=== PATIENT | male | born 1955 | race Caucasian/White ===

== ENCOUNTER 2023-09-04 11:40 | Emergency (ER) | payer OTHER ==
[~2023-09-04] VITALS: Ht 182.9 cm; Wt 102.4 kg
[~2023-09-04 11:40] MED LIST: AMLO1TAB23; IBUP-1456
[2023-09-04 12:52] VITALS: BP 123/83; PULSE 74; RESP 15; TEMP 98.5; O2SAT 98
[2023-09-04] MEDS ORDERED: LIDOCAINE W/ EPINEPHRINE 2% INJ 20ML VIAL ID ONE (13:15)
[2023-09-04] MEDS ORDERED: NEOMYCIN-BACITRACIN-POLYM UNITDOSE PKG TOP OINT TOP ONE (13:15)
[2023-09-04] MEDS ORDERED: TETANUS-DIPTH-ACEL PERTUSSIS 0.5ML SYR Tdap IM ONE (14:15)
== END 2023-09-04 14:19 | disposition home or self-care (01) ==
LOC: ER 11:40
DX: S81.811A Laceration without foreign body, right lower leg, initial encounter (principal); I10 Essential (primary) hypertension; Z79.1 Long term (current) use of non-steroidal anti-inflammatories (NSAID); Z79.899 Other long term (current) drug therapy; W26.8XXA Contact with other sharp object(s), not elsewhere classified, initial encounter; Y93.89 Activity, other specified; Y92.89 Other specified places as the place of occurrence of the external cause; Y99.8 Other external cause status
CPT/HCPCS: 12004; 90471; 90715

== ENCOUNTER 2024-09-14 22:01 | Emergency (ER) | payer OTHER ==
[~2024-09-14] VITALS: Ht 182.9 cm; Wt 100.0 kg
--- NOTE | 2024-09-14 22:36 | ED.PDOC ---
History of Present Illness HPI Comments 68 y/o M, with a Hx of HTN and current inguinal hernia, is BIBA for c/o non- radiating, suprapubic abdominal pain, today. 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 He comments on pain being stabbing and burning in quality and being informed on having an inguinal hernia following an outpatient ultrasound, recently, and is awaiting to consult with a specialist regarding it. He denies having any nausea, vomiting, diarrhea, fever, chills, urinary symptoms, or other associated symptoms or modifiers at this time. Chief Complaint: Abdominal Pain Time Seen by MD: 22:15 Primary Care Provider: KAREN Reviewed Notes: Nurses Notes, Tag Machine Operator Notes, Medications, Allergies Allergies: Coded Allergies: NO KNOWN ALLERGIES (Unverified , 11/07/13) Home Meds Reported Medications Ibuprofen (Ibuprofen) 800 Mg Tab, #30 12/03/13 Amlodipine Besylate (Amlodipine Besylate) 10 Mg Tab, #90 12/03/13 Information Source: Patient, Emergency Med Personnel Mode of Arrival: EMS Severity: Moderate Timing: Hours Duration: Since onset Prehospital treatment: 12 Lead EKG, [employer] Past Medical History PAST MEDICAL HISTORY: HTN Past Medical History (Other): current inguina hernia Surgical History: Denies all surgeries Family History Family History: Reviewed,noncontributory to illness, Unknown Social History Smoker: Non-Smoker Alcohol: Denies ETOH Use Drugs: Denies Drug Use Lives In: Home Constitutional: denies: chills, diaphoresis, fatigue, fever, malaise, sweats, weakness, others EENTM: denies: blurred vision, double vision, ear bleeding, ear discharge, ear drainage, ear pain, ear ringing, eye pain, eye redness, hearing loss, mouth pain, mouth swelling, nasal discharge, nose bleeding, nose congestion, nose pain, photophobia, tearing, throat pain, throat swelling, voice changes, others Respiratory: denies: cough, hemoptysis, orthopnea, SOB at rest, shortness of breath, SOB with excertion, stridor, wheezing, others Cardiovascular: denies: chest pain, dizzy spells, diaphoresis, Dyspnea on ex ertion, edema, irregular heart beat, left arm pain, lightheadedness, palpitations, PND, syncope, others Gastrointestinal: reports: abdominal pain (suprapubic and right inguinal region ); denies: abdomen distended, blood streaked bowels, constipated, diarrhea, dysphagia, difficulty swallowing, hematemesis, melena, nausea, poor appetite, poor fluid intake, rectal bleeding, rectal pain, vomiting, others Genitourinary: denies: burning, dysuria, flank pain, frequency, hematuria, incontinence, penile discharge, penile sore, pain, testicle pain, testicle swelling, urgency, others Neurological: denies: dizziness, fainting, headache, left sided numbness, left sided weakness, numbness, paresthesia, pre-existing deficit, right sided numbness, right sided weakness, seizure, speech problems, tingling, tremors, weakness, others Musculoskeletal: denies: back pain, gout, joint pain, joint swelling, muscle pain, muscle stiffness, neck pain, others Integumetry: denies: bruises, change in color, change in hair/nails, dryness, laceration, lesions, lumps, rash, wounds, others Allergic/Immunocompromised: denies: Difficulty Healing, Frequent Infections, Hives, Itching, others Hematologic/Lymphatic: denies: anemia, blood clots, easy bleeding, easy bruising, swollen glands, others Endocrine: denies: excessive hunger, excessive sweating, excessive thirst, excessive urination, flushing, intolerance to cold, intolerance to heat, unexplained weight gain, unexplained weight loss, others Psychiatric: denies: anxiety, bipolar disorder, depression, hopeless, panic disorder, schizophrenia, sleepless, suicidal, others All Other Systems: Reviewed and Negative (negative unless otherwise stated above or in HPI) Physical Exam General Appearance: Moderate Distress (Did right-sided inguinal and suprapubic pain.), Normal HEENT: Normal ENT Inspection, Pharynx Normal, TMs Normal Neck: Full Range of Motion, Non-Tender, Normal, Normal Inspection Respiratory: Chest Non-Tender, Lungs Clear, No Accessory Muscle Use, No Respiratory Distress, Normal Breath Sounds Cardiovascular: No Edema, No JVD, No Murmur, No Gallop, Normal Peripheral Pulses, Regular Rate/Rhythm Breast Exam: Deferred Gastrointestinal: No Organomegaly, Non Tender, No Pulsatile Mass, Normal Bowel Sounds, Soft Genitalia: Other (Right-sided inguinal pain extending towards the scrotum. Unable to definitively appreciate an inguinal hernia. Nothing to reduced. No edema or ecchymosis.) Pelvic: Deferred Rectal: Deferred Extremities: No calf tenderness, Normal capillary refill, Normal inspection, Normal range of motion, Non-tender, No pedal edema Musculoskeletal : Apperance: Normal Neurologic: Alert, No Motor Deficits, Normal Affect, Normal Mood, No Sensory Deficits Cerebellar Function: Normal Reflexes: Normal Skin: Dry, Normal Color, Warm Lymphatic: No Adenopathy Was a procedure done? Was a procedure done?: No Differential Dx Considerations may include: incarcerated inguinal hernia, strangulated inguinal hernia, musculoskeletal pain , hydrocele, epididymitis, varicocele X-Ray, Labs, Meds, VS Vital Signs Date Time Temp Pulse Resp B/P (MAP) Pulse Ox O2 Delivery O2 Flow Rate FiO2 09/14/24 22:40 Room Air* 0 21 09/14/24 22:40 98.1 72 20 136/88 (104) 96 98.1 09/14/24 22:20 62 09/14/24 22:08 97.0 130 26 121/88 (99) 99 Lab Test 09/14/24 23:20 Range/Units Urine Color Colorless Yellow Urine Clarity Clear Clear Urine pH 7.0 5.0-9.0 Urine Specific Reading 1.011 1.001-1.035 Urine Protein Negative Negative Urine Ketones Negative Negative Urine Blood Negative Negative /uL Urine Nitrite Negative Negative Urine Bilirubin Negative Negative Urine Urobilinogen Normal Negative mg/dL Urine Leukocyte Esterase Negative Negative /uL Urine RBC None seen 0 - 3 /hpf Urine Microscopic WBC < 1 0-3 /HPF Urine Squamous Epithelial Cells Few <5 /hpf Urine Bacteria None seen None Seen /hpf Urine Glucose Normal Normal mg/dL Current Medications Medications (Trade) Dose Ordered Sig/Luis Route Start Time Stop Time Status Last Admin Acetaminophen/ Hydrocodone Bitart ([place] 10/325MG Tab) 1 tab ONCE ONCE PO 09/14/24 22:15 09/14/24 22:17 DC 09/14/24 23:20 X-Ray, Labs, Meds, VS Comment All studies performed the ED were evaluated by me personally. Urinalysis is unremarkable for any urinary tract infection concerns. Ultrasound of inguinal hernia and testicles was unremarkable for any hernia, but was confirmation for a right-sided hydrocele he and possible varicocele a. Additional right-sided epididymitis was noted. Small left-sided hydrocele was noted with a large left epididymis indicative of epididymitis. Patient declined any sexual indiscretions and therefore, patient will be sent home on Levaquin to address any bacterial concerns as well as pain medication. Patient should follow up with the primary care provider once antibiotics are complete for re-evaluation. Time of 1ST Reevaluation: 00:38 Reevaluation 1ST: Improved Consultation: PCP Patient Education/Counseling: Diagnosis, Treatment Family Education/Counseling: Diagnosis, Treatment, No Family Present Departure 1 Departure Time of Disposition: 00:39 Impression: Primary Impression: Epididymitis, bilateral Additional Impressions: Hydrocele of testis Bilateral varicoceles Disposition: HOME / SELF CARE / HOMELESS Condition: Stable Additional Instructions: Advised patient utilize antibiotics as directed as well as pain medication as needed. Patient should follow up with the primary care provider in approximately seven days for re-evaluation. e-Prescriptions Hydrocodone-Acetaminophen (Hydrocodone Bitartrate/AC 10-325 mg) 1 Tab Tab 1 TAB PO Q8HP PRN, #15 TAB Prov: SHARON BEASLEY PAC 09/15/24 Ibuprofen Micronized (Ibuprofen) 800 Mg Tab 800 MG PO Q8HP PRN, #30 TAB Prov: SHARON BEASLEY PAC 09/15/24 Levofloxacin Hemihydrate (LEVAQUIN 500 MG) 500 Mg Tab 1 TAB PO DAILY for 9 Days, #9 TAB Prov: SHARON BEASLEY 09/15/24 Discharged With: Self, Friend Critical Care Note Critical Care Time?: No Stability Stability form required: No Heart Score Heart Score: Heart Score Response (Comments) Value History N/A 0 EKG N/A 0 Age N/A 0 Risk Factors N/A 0 Troponin N/A 0 Total 0 I personally scribed for SHARON BEASLEY PAC ([email or web address]) on 09/14/24 at 22:36. Electronically submitted by Jonny Hercules ([email or web address]). SHARON BEASLEY PAC Sep 14, 2024 22:36
[2024-09-14] MEDS: HYDROcodone-ACET 10/325MG TAB PO ONE (23:20)
[2024-09-14 23:34] LABS: Urine Bacteria None Seen /hpf (None Seen)
--- NOTE | 2024-09-14 23:41 | DVH ---
US TESTICULAR ULTRASOUND HISTORY: Right sided inguinal hernia COMPARISON: None Technique: Transverse and longitudinal grayscale and Doppler sonographic images were obtained of the scrotum/testicles. Findings/ IMPRESSION: The right testicle measures 3.2 x 2.7 x 2.5 cm with cystic lesions measuring up to 2.1 mm. There is a small right-sided hydrocele and associated varicocele possible cystic lesion in the right epididymis measuring up to 1.6 cm. There is also increased color Doppler flow with increased size measuring 9 m m. The left testicle measures 3.4 x 2.4 x 2.5 cm. Cystic lesions measuring up to 1 cm. Small left-sided hydrocele. Enlarged left epididymis with increased vascularity and cystic lesions measuring up to 3 m m. Overall findings are concerning for possible bilateral epididymitis. The cystic lesions can be follo wed as clinically indicated. Right-sided varicocele
[2024-09-14 23:56] LABS: Urine Blood Negative /uL (Negative); Urine Clarity Clear (Clear); Urine Color Colorless (Yellow); Urine Protein, UAD Negative (Negative); Urine Specific Gravity 1.011 (1.001-1.035); Urine Squamous Epithelial Cell FEW /hpf (<5); Urine Urobilinogen Normal (Negative); Urine WBC < 1 /HPF (0-3)
[2024-09-15] MEDS ORDERED: LEVO500T91 PO (00:41)
[2024-09-15] MEDS ORDERED: IBUP-1455 PO (00:41)
[2024-09-15] MEDS ORDERED: HYDR-4798 PO (00:41)
[2024-09-15] MEDS: levoFLOXacin 250 MG TAB PO ONE (00:55)
[2024-09-15 00:57] VITALS: BP 149/85; TEMP 97.8
[2024-09-15 00:58] VITALS: PULSE 71; RESP 19; O2SAT 97
--- NOTE | 2024-09-16 19:41 | ECG ---
[facility] Test Date: 2024-09-14 Test Time: 22:20:57 Pat Name: SHARON LAMBERT Department: er Room: Gender: M Intervention Manager: : [id number] Requested By: SHARON BEASLEY Order Number: [id number] Reading MD: Danny Dumont Measurements Intervals [place] Rate: 62 P: 34 WA: 180 QRS: -42 QRSD: 104 T: 2 QT: 425 QTc: 432 Interpretive Statements Sinus rhythm Consider right atrial enlargement Abnormal R-wave progression, late transition Left ventricular hypertrophy Electronically Signed On 09-17-2024 8:23:38 PST by Danny Dumont Please click the below link to view image of tracing.
== END 2024-09-15 01:07 | disposition home or self-care (01) ==
LOC: EDBD 22:01 → ER 22:01
DX: N45.1 Epididymitis (principal); N43.3 Hydrocele, unspecified; I86.1 Scrotal varices
CPT/HCPCS: 76870; 81001; 93005